=== PATIENT | female | born 1965 | race Caucasian/White ===

== ENCOUNTER 2017-02-01 15:30 | Inpatient (IN) | payer OTHER ==
[~2017-02-01] VITALS: Ht 172.7 cm; Wt 90.1 kg
[~2017-02-01 15:30] MED LIST: ALOE VERA25 MG PO; BACTRIM,SEPT1 TABLE1 PO; FISH OIL 1,0001 EAC7 PO; HYDROXYUREA500 MG PO; KLONOPIN1 MG PO; LO-DOSE ASPIRIN81 M2 PO; MULTI-DAY VITA1 EACH PO; PREDNISONE10 MG PO; PREDNISONE5 MG PO; PROTONIX40 MG PO; VITAMIN D5000 UNI1 PO; VITAMIN E1000 UNI1 PO; XANAX0.5 MG PO; ZESTRIL10 MG PO
[2017-02-01 16:32] LABS: HEMATOCRIT 16.8 % (36.0-46.0); IMM.PLATELET FRACTION 11.4 (1-7); MCH 29.2 PG (29.0-34.0); MCHC 35.1 G/DL (30.0-36.0); MCV 83.2 FL (83-99); MEAN PLAT.VOLUME 11.4 uM^3 (9.5-12.4); RBC DIS.WIDTH-CV 13.1 % (11.8-14.6); RBC DIS.WIDTH-SD 40.1 % (39-53); WHITE BLOOD COUNT 6.3 K/uL (4.1-10.2)
[2017-02-01 16:35] LABS: PLATELET COUNT 18 K/uL (156-360); RED BLOOD COUNT 2.02 M/uL (3.80-5.20)
[2017-02-01 16:39] LABS: CHLORIDE 103 mEq/L (99-109); POTASSIUM 3.6 mEq/L (3.7-5.4); SODIUM 133 mEq/L (136-147)
[2017-02-01 16:40] LABS: GLUCOSE 145 mg/dL (70-99)
[2017-02-01 16:42] LABS: ANION GAP 10 MEQ/L (2-14)
[2017-02-01 16:44] LABS: GFR ESTIMATE (CALCULATED) > 59 mL/min/
[2017-02-01 16:45] LABS: UREA NITROGEN (BUN) 12 mg/dL (9-23)
[2017-02-01 17:26] LABS: PLAT.SUFFICIENCY VERY DECREASED
[2017-02-01] MEDS ORDERED: IRON18 MG PO (17:56)
[2017-02-01] MEDS ORDERED: TYLENOL EXTRA500 MG PO (17:57)
[2017-02-01] MEDS ORDERED: SILVADENE20 GM TP (18:00)
[2017-02-01] MEDS ORDERED: MULTI VITAMIN1 EACH PO (18:01)
[2017-02-01 20:35] VITALS: BP 128/58
[2017-02-02] VITALS (11 sets, daily range): BP systolic 86–155; BP diastolic 51–77
[2017-02-02 13:05] LABS: HEMATOCRIT 27.7 % (36.0-46.0); MCH 29.4 PG (29.0-34.0); MCHC 34.7 G/DL (30.0-36.0); RBC DIS.WIDTH-CV 13.2 % (11.8-14.6); RBC DIS.WIDTH-SD 40.6 % (39-53)
[2017-02-02 13:13] LABS: RED BLOOD COUNT 3.26 M/uL (3.80-5.20)
[2017-02-02 13:22] LABS: ANION GAP 8 MEQ/L (2-14); CHLORIDE 103 MEQ/L (99-109); GFR ESTIMATE (CALCULATED) > 59 mL/min/; POTASSIUM 3.7 MEQ/L (3.7-5.4); SAMPLE HEMOLYSIS CHECK 0; SAMPLE ICTERIC CHECK 0; SAMPLE LIPEMIA CHECK 0; SODIUM 134 MEQ/L (136-147); UREA NITROGEN (BUN) 9 mg/dL (9-23)
[2017-02-02 13:34] LABS: GLUCOSE 101 mg/dL (70-99)
[2017-02-02 13:56] LABS: IMM.PLATELET FRACTION 8.6 (1-7); MEAN PLAT.VOLUME 11.2 uM^3 (9.5-12.4); PLAT.SUFFICIENCY VERY DECREASED; PLATELET COUNT 11 K/uL (156-360)
[2017-02-02 17:21] LABS: HEMATOCRIT 26.6 % (36.0-46.0); MCH 29.3 PG (29.0-34.0); MCV 83.9 FL (83-99); RBC DIS.WIDTH-CV 13.2 % (11.8-14.6); RBC DIS.WIDTH-SD 40.7 % (39-53); RED BLOOD COUNT 3.17 M/uL (3.80-5.20); WHITE BLOOD COUNT 3.9 K/uL (4.1-10.2)
[2017-02-02 17:46] LABS: IMM.PLATELET FRACTION 8.8 (1-7); MEAN PLAT.VOLUME 11.5 uM^3 (9.5-12.4); PLAT.SUFFICIENCY VERY DECREASED
[2017-02-02 17:57] LABS: PLATELET COUNT 9 K/uL (156-360)
[2017-02-03 01:37] VITALS: BP 100/51
[2017-02-03 02:23] VITALS: BP 109/57
[2017-02-03 03:19] LABS: METH RESISTANT S AUREUS PCR NEGATIVE (NEGATIVE)
[2017-02-03 03:20] LABS: PROBE CHECK PASS; SPECIMEN PROCESSING CONTROL PASS
[2017-02-03 03:48] VITALS: BP 112/62
[2017-02-03 06:32] LABS: HEMATOCRIT 26.5 % (36.0-46.0); MCH 28.4 PG (29.0-34.0); MCHC 34.3 G/DL (30.0-36.0); MCV 82.8 FL (83-99); RBC DIS.WIDTH-CV 13.2 % (11.8-14.6); RBC DIS.WIDTH-SD 40.5 % (39-53); WHITE BLOOD COUNT 3.6 K/uL (4.1-10.2)
[2017-02-03 06:57] LABS: ANION GAP 10 MEQ/L (2-14); CHLORIDE 101 MEQ/L (99-109); GFR ESTIMATE (CALCULATED) > 59 mL/min/; GLUCOSE 118 mg/dL (70-99); POTASSIUM 3.4 MEQ/L (3.7-5.4); SAMPLE HEMOLYSIS CHECK 0; SAMPLE ICTERIC CHECK 0; SAMPLE LIPEMIA CHECK 0; SODIUM 134 MEQ/L (136-147); UREA NITROGEN (BUN) 9 mg/dL (9-23)
[2017-02-03 07:09] LABS: ABS NEUTROPHIL COUNT 2.2; EOSINOPHIL ABS CT 0.1; IMM.PLATELET FRACTION 4.9 (1-7); INSTRUMENT ABS NEUTROPHIL CT 1.9 K/uL; MEAN PLAT.VOLUME 9.9 uM^3 (9.5-12.4); PLAT.SUFFICIENCY VERY DECREASED; PLATELET COUNT 24 K/uL (156-360)
[2017-02-03 07:57] VITALS: BP 139/61
[2017-02-03 16:00] VITALS: BP 112/75
[2017-02-03 23:38] VITALS: BP 113/58
[2017-02-04 08:00] VITALS: BP 122/59
[2017-02-04 16:00] VITALS: BP 88/47
[2017-02-04 20:06] LABS: ABS NEUTROPHIL COUNT 2.2; ANISOCYTOSIS 1+; ATYPICAL LYMPHOCYTE 3.5 %; BAND NEUTROPHILS 9.7 % (0-8.0); BASOPHILS 3.6 %; BURR CELLS 1+; EOSINOPHIL ABS CT 0.1; EOSINOPHILS 1.8 % (0-5.0); HEMATOCRIT 23.4 % (36.0-46.0); INSTRUMENT ABS NEUTROPHIL CT 1.9 K/uL; LYMPHOCYTES 13.3 % (15.0-45.0); MCH 29.4 PG (29.0-34.0); MCHC 35.5 G/DL (30.0-36.0); MICROCYTOSIS 1+; OVALOCYTES 1+; PLAT.SUFFICIENCY VERY DECREASED; POIKILOCYTOSIS 1+; RBC DIS.WIDTH-CV 13.2 % (11.8-14.6); RBC DIS.WIDTH-SD 40.1 % (39-53); RED BLOOD COUNT 2.82 M/uL (3.80-5.20); SEG.NEUTROPHILS 62.8 % (46.0-76.0)
[2017-02-04 20:08] LABS: PLATELET COUNT 10 K/uL (156-360)
[2017-02-04 23:54] VITALS: BP 102/52
[2017-02-05] VITALS (9 sets, daily range): BP systolic 98–147; BP diastolic 51–95
[2017-02-05 07:12] LABS: HEMATOCRIT 22.6 % (36.0-46.0); MCH 29.8 PG (29.0-34.0); MCHC 35.8 G/DL (30.0-36.0); MCV 83.1 FL (83-99); RBC DIS.WIDTH-CV 13.3 % (11.8-14.6); RBC DIS.WIDTH-SD 40.4 % (39-53); RED BLOOD COUNT 2.72 M/uL (3.80-5.20); WHITE BLOOD COUNT 2.9 K/uL (4.1-10.2)
[2017-02-05 07:29] LABS: ANION GAP 12 MEQ/L (2-14); CHLORIDE 96 MEQ/L (99-109); GFR ESTIMATE (CALCULATED) > 59 mL/min/; GLUCOSE 118 mg/dL (70-99); SAMPLE HEMOLYSIS CHECK 0; SAMPLE ICTERIC CHECK 0; SAMPLE LIPEMIA CHECK 0; UREA NITROGEN (BUN) 12 mg/dL (9-23)
[2017-02-05 07:33] LABS: ABS NEUTROPHIL COUNT 2.1; ATYPICAL LYMPHOCYTE 3.6 %; BAND NEUTROPHILS 7.3 % (0-8.0); BASOPHILS 5.5 %; EOSINOPHIL ABS CT 0.1; EOSINOPHILS 1.8 % (0-5.0); IMM.PLATELET FRACTION 12.6 (1-7); INSTRUMENT ABS NEUTROPHIL CT 1.9 K/uL; LYMPHOCYTES 16.4 % (15.0-45.0); METAMYELOCYTES 0.9 %; OVALOCYTES 1+; PLAT.SUFFICIENCY VERY DECREASED; POIKILOCYTOSIS 1+; SEG.NEUTROPHILS 63.6 % (46.0-76.0); TOX.VACUOLIZATION 1+; TOXIC GRANULATION 1+
[2017-02-05 07:34] LABS: SODIUM 127 MEQ/L (136-147)
[2017-02-05 07:39] LABS: PLATELET COUNT 7 K/uL (156-360)
[2017-02-05 20:35] LABS: HEMATOCRIT 21.8 % (36.0-46.0); MCH 29.5 PG (29.0-34.0); MCHC 35.8 G/DL (30.0-36.0); MCV 82.6 FL (83-99); RBC DIS.WIDTH-CV 13.4 % (11.8-14.6); RBC DIS.WIDTH-SD 40.6 % (39-53); RED BLOOD COUNT 2.64 M/uL (3.80-5.20); WHITE BLOOD COUNT 3.1 K/uL (4.1-10.2)
[2017-02-05 21:01] LABS: ANION GAP 11 MEQ/L (2-14); CHLORIDE 97 MEQ/L (99-109); GFR ESTIMATE (CALCULATED) > 59 mL/min/; GLUCOSE 104 mg/dL (70-99); SAMPLE HEMOLYSIS CHECK 0; SAMPLE ICTERIC CHECK 0; SAMPLE LIPEMIA CHECK 0; SODIUM 128 MEQ/L (136-147); UREA NITROGEN (BUN) 15 mg/dL (9-23)
[2017-02-05 21:03] LABS: POTASSIUM 3.7 MEQ/L (3.7-5.4)
[2017-02-05 21:07] LABS: ABS NEUTROPHIL COUNT 1.9; ANISOCYTOSIS 2+; ATYPICAL LYMPHOCYTE 3.6 %; BAND NEUTROPHILS 1.8 % (0-8.0); BASOPHILS 4.5 %; BURR CELLS 2+; EOSINOPHIL ABS CT 0.1; EOSINOPHILS 4.4 % (0-5.0); HEMATOLOGY COMMENT 1 SN; HYPOCHROMASIA 2+; IMM.PLATELET FRACTION 3.3 (1-7); MEAN PLAT.VOLUME 10.5 uM^3 (9.5-12.4); PLAT.SUFFICIENCY VERY DECREASED; PLATELET COUNT 33 K/uL (156-360); POIKILOCYTOSIS 2+
[2017-02-06] VITALS (7 sets, daily range): BP systolic 81–116; BP diastolic 49–64
[2017-02-06 07:40] LABS: HEMATOCRIT 20.8 % (36.0-46.0); MCH 28.8 PG (29.0-34.0); MCHC 34.6 G/DL (30.0-36.0); MCV 83.2 FL (83-99); RBC DIS.WIDTH-CV 13.6 % (11.8-14.6); RBC DIS.WIDTH-SD 41.3 % (39-53); WHITE BLOOD COUNT 2.1 K/uL (4.1-10.2)
[2017-02-06 07:53] LABS: IMM.PLATELET FRACTION 4.5 (1-7); MEAN PLAT.VOLUME 10.7 uM^3 (9.5-12.4); PLAT.SUFFICIENCY VERY DECREASED
[2017-02-06 07:59] LABS: PLATELET COUNT 20 K/uL (156-360)
[2017-02-06 08:05] LABS: ANION GAP 11 MEQ/L (2-14); CHLORIDE 98 MEQ/L (99-109); GFR ESTIMATE (CALCULATED) 50 mL/min/; GLUCOSE 87 mg/dL (70-99); POTASSIUM 3.7 MEQ/L (3.7-5.4); SAMPLE HEMOLYSIS CHECK 0; SAMPLE ICTERIC CHECK 0; SAMPLE LIPEMIA CHECK 0; SODIUM 128 MEQ/L (136-147); UREA NITROGEN (BUN) 19 mg/dL (9-23)
[2017-02-07] VITALS (8 sets, daily range): BP systolic 106–135; BP diastolic 59–74
[2017-02-07 06:41] LABS: HEMATOCRIT 28.9 % (36.0-46.0); MCH 28.7 PG (29.0-34.0); MCHC 34.6 G/DL (30.0-36.0); MCV 82.8 FL (83-99); RBC DIS.WIDTH-CV 13.9 % (11.8-14.6); RBC DIS.WIDTH-SD 42.1 % (39-53); WHITE BLOOD COUNT 3.3 K/uL (4.1-10.2)
[2017-02-07 06:50] LABS: RED BLOOD COUNT 3.49 M/uL (3.80-5.20)
[2017-02-07 06:55] LABS: ANION GAP 9 MEQ/L (2-14); CHLORIDE 106 MEQ/L (99-109); GFR ESTIMATE (CALCULATED) > 59 mL/min/; POTASSIUM 3.9 MEQ/L (3.7-5.4); SAMPLE HEMOLYSIS CHECK 0; SAMPLE ICTERIC CHECK 0; SAMPLE LIPEMIA CHECK 0; UREA NITROGEN (BUN) 24 mg/dL (9-23)
[2017-02-07 06:56] LABS: GLUCOSE 148 mg/dL (70-99); SODIUM 135 MEQ/L (136-147)
[2017-02-07 07:01] LABS: HEMATOLOGY COMMENT 1 SN; PLAT.SUFFICIENCY VERY DECREASED; PLATELET COUNT 10 K/uL (156-360)
[2017-02-08 06:24] LABS: HEMATOCRIT 25.7 % (36.0-46.0); MCH 29.4 PG (29.0-34.0); RBC DIS.WIDTH-CV 14.6 % (11.8-14.6); RBC DIS.WIDTH-SD 45.1 % (39-53); RED BLOOD COUNT 3.06 M/uL (3.80-5.20); WHITE BLOOD COUNT 3.1 K/uL (4.1-10.2)
[2017-02-08 06:48] LABS: ANION GAP 8 MEQ/L (2-14); CHLORIDE 110 MEQ/L (99-109); GFR ESTIMATE (CALCULATED) > 59 mL/min/; GLUCOSE 159 mg/dL (70-99); POTASSIUM 4.3 MEQ/L (3.7-5.4); SAMPLE HEMOLYSIS CHECK 0; SAMPLE ICTERIC CHECK 0; SAMPLE LIPEMIA CHECK 0; SODIUM 139 MEQ/L (136-147); UREA NITROGEN (BUN) 28 mg/dL (9-23)
[2017-02-08 07:03] VITALS: BP 136/60
[2017-02-08 07:20] LABS: IMM.PLATELET FRACTION 4.2 (1-7); MEAN PLAT.VOLUME 11.5 uM^3 (9.5-12.4); PLAT.SUFFICIENCY VERY DECREASED
[2017-02-08 07:22] LABS: PLATELET COUNT 32 K/uL (156-360)
[2017-02-08] MEDS ORDERED: PREDNISONE20 MG PO (10:56)
== END 2017-02-08 12:56 | disposition home or self-care (01) | DRG 607 ==
LOC: EME 15:30 → 5SOUTH 18:44 → EDOF 18:44 → ENRESERV 18:46 → 5SOUTH 20:18
PROVIDERS: Hospitalist; Internal Medicine; Internal Medicine Infectious Disease; Nurse Practitioner Adult Health; Physician Assistant Medical
DX: L98.2 Febrile neutrophilic dermatosis [Sweet] (principal); D75.81 Myelofibrosis; D61.818 Other pancytopenia; D89.9 Disorder involving the immune mechanism, unspecified; R33.9 Retention of urine, unspecified; I10 Essential (primary) hypertension; I95.9 Hypotension, unspecified; F17.200 Nicotine dependence, unspecified, uncomplicated; I89.1 Lymphangitis; F41.9 Anxiety disorder, unspecified; E66.9 Obesity, unspecified; Z80.0 Family history of malignant neoplasm of digestive organs; Z88.0 Allergy status to penicillin; Z83.3 Family history of diabetes mellitus; Z68.30 Body mass index [BMI] 30.0-30.9, adult; Z79.899 Other long term (current) drug therapy
CPT/HCPCS: 36415; 71010; 73090; 80048; 80048 91; 83605; 85007; 85025; 85025 91; 85027; 85045; 86611 90; 86850; 86900; 86901; 86920; 87040; 87070; 87075; 87116; 87205; 87206; 87385 90; 87641; 99281; 99285; J0696; J1200; J2405; J2543; J3370; J7030; J7040; J7512; P9016; P9037